=== PATIENT | male | born 1965 | race Caucasian/White ===

== ENCOUNTER 2022-07-21 10:02 | Emergency (ER) | payer OTHER ==
[~2022-07-21] VITALS: Ht 177.8 cm; Wt 74.8 kg
[2022-07-21] MEDS ORDERED: Norco 5-325 Ta1 EACH PO ×2 (11:46→12:40)
== END 2022-07-21 12:08 | disposition home or self-care (01) ==
LOC: ER 10:02
DX: S62.002A Unspecified fracture of navicular [scaphoid] bone of left wrist, initial encounter for closed fracture (principal); W19.XXXA Unspecified fall, initial encounter; Z88.8 Allergy status to other drugs, medicaments and biological substances
CPT/HCPCS: 73110